=== PATIENT | male | born 1960 ===

== ENCOUNTER 2017-08-07 06:00 | Day surgery (SDC) | payer OTHER ==
[~2017-08-07] VITALS: Ht 165.1 cm; Wt 86.2 kg
[~2017-08-07 06:00] MED LIST: ALL DAY ALL1 MG/1 ML PO; ESTAZOLAM2 MG PO; OMEPRAZOLE10 MG PO; RANITIDINE15 MG/1 ML PO; SYNTHROI PO; TRAZODONE HCL50 MG
[2017-08-08] MEDS ORDERED: PERCOCET 5-3251 EACH PO (09:54)
== END 2017-08-08 08:00 | disposition home or self-care (01) ==
LOC: CIR.AMB 06:00 → O/R 06:00 → SURG 06:00 → O/R 06:12 → SURG 07:00 → EDSTATUS 10:30 → O/R 10:31 → OB/GYN 10:31 → O/R 16:53 → SURG 16:53 → O/R 20:21 → SURG 20:21 → CIR.AMB 08-08 08:00 → O/R 08-08 11:09 → SURG 08-08 11:09
DX: E04.2 Nontoxic multinodular goiter (principal); K21.9 Gastro-esophageal reflux disease without esophagitis; D44.0 Neoplasm of uncertain behavior of thyroid gland; F41.8 Other specified anxiety disorders; J30.89 Other allergic rhinitis; E03.8 Other specified hypothyroidism